=== PATIENT | female | born 1980 | race Asian ===

== ENCOUNTER 2020-10-23 13:43 | Emergency (ER) | payer OTHER ==
[~2020-10-23] VITALS: Ht 172.7 cm; Wt 55.5 kg
[2020-10-23] MEDS ORDERED: METOCLOPRAMIDE 10 MG TAB PO ONE (16:55)
[2020-10-23] MEDS ORDERED: LIDOCAINE 4% CREAM 5GM (LMX4) TOP ONE (16:55)
[2020-10-23] MEDS ORDERED: NAPROXEN 250 MG TAB PO ONE (16:55)
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
[2020-10-23] MEDS ORDERED: HYDR-3363 PO (18:42)
[2020-10-23 18:46] VITALS: BP 108/67
== END 2020-10-23 18:51 | disposition home or self-care (01) ==
LOC: M ED 13:43
DX: S00.83XA Contusion of other part of head, initial encounter (principal); S50.11XA Contusion of right forearm, initial encounter; S50.12XA Contusion of left forearm, initial encounter; Y04.8XXA Assault by other bodily force, initial encounter; Y07.01 Husband, perpetrator of maltreatment and neglect; Y92.410 Unspecified street and highway as the place of occurrence of the external cause; Y93.89 Activity, other specified; Y99.8 Other external cause status